=== PATIENT | female | born 1960 | race African-American/Black ===

== ENCOUNTER → 2022-03-20 | Outpatient (CLI) | payer MEDICARE, OTHER ==
--- NOTE | 2022-03-20 11:59 | FL ---
Modified barium swallow. Consistencies administered: Thin, applesauce, and cracker No tracheal or nasopharyngeal aspiration. No laryngeal penetration. Premature spill with applesauce a nd cracker barium consistencies. Small amount of residual was demonstrated within the piriform recess with thin consistency. Fluoro time: 1 minute 33 seconds. No images were sent to PACS. Please see speech pathology report.
== END | disposition home or self-care (01) ==
LOC: RADFLMAIN 11:10
PROVIDERS: ATTEND Psychiatry & Neurology Neurology
DX: G20 Parkinson's disease (principal)
CPT/HCPCS: 74230